=== PATIENT | male | born 1960 | race Caucasian/White ===

== ENCOUNTER 2023-03-21 09:40 | Outpatient (CLI) | payer OTHER, SELFPAY ==
--- NOTE | 2023-03-21 10:31 | ECG_ITS ---
Measurements Intervals [place] Rate: 92 P: 49 NC: 161 QRS: 40 QRSD: 109 T: 48 QT: 349 QTc: 432 Interpretive Statements SINUS RHYTHM EARLY PRECORDIAL R/S TRANSITION BASELINE ARTIFACT- I, II, III, AVF BORDERLINE ECG NO PREVIOUS ECG AVAILABLE FOR COMPARISON Electronically Signed On 03-21-2023 11:11:14 CDT by Jose Alfredo Santana D.O.
[2023-03-21 11:15] LABS: Urine Cotinine NEGATIVE
== END 2023-03-21 09:41 | disposition home or self-care (01) ==
PROVIDERS: PCP Internal Medicine; Visit Provider Orthopaedic Surgery
DX: I10 Essential (primary) hypertension (principal); Z79.899 Other long term (current) drug therapy; R94.31 Abnormal electrocardiogram [ECG] [EKG]
CPT/HCPCS: 80307; 93005

== ENCOUNTER 2023-03-28 13:22 | Outpatient (CLI) | payer OTHER, SELFPAY ==
--- NOTE | ~2023-03-28 | CT_ITS ---
CT OF right shoulder EXAMINATION: CT shoulder RT wo con DATE: 03/28/2023 13:46 INDICATION: Preoperative planning. Osteoarthritis of the right shoulder. TECHNIQUE: Computed tomography (CT) of the right shoulder was performed without intravenous contrast. Automated exposure control and iterative reconstruction technique were employed. The dose-length pro duct was 422.88 mGy-cm. COMPARISON: X-ray right shoulder 02/05/2023, images only. FINDINGS: Mild osseous demineralization. Mild AC joint osteoarthritis, with mild, 2 mm inferior osteophytosis. Minimal acromial tip enthesopathy. Subacromial narrowing to 4 mm. Superior migration of the humeral h ead. Moderate-severe glenohumeral osteoarthritis. 1.5 cm and 1.2 loose bodies in the anterior and sup erior aspect of the glenohumeral joint. Vertically oriented old fracture line at the posterior aspect of the glenoid. Adjacent 7 mm inferior loose body/fracture fragment. Visualized lung parenchyma is c lear. IMPRESSION: Severe glenohumeral osteoarthritis, with multiple loose bodies. Old posterior osseous glenoid fracture. Likely rotator cuff pathology. Mild AC joint osteoarthritis. Reviewed, dictated and finalized at location K.
== END 2023-03-28 13:23 | disposition home or self-care (01) ==
PROVIDERS: PCP Internal Medicine; Visit Provider Orthopaedic Surgery
DX: M19.011 Primary osteoarthritis, right shoulder (principal); M24.011 Loose body in right shoulder
CPT/HCPCS: 73200

== ENCOUNTER 2023-04-10 09:35 | Outpatient (CLI) | payer OTHER, SELFPAY ==
[2023-04-10 11:10] LABS: Basophils Percent Auto 0.1 % (0.2-1.2); Eosinophils Absolute Auto 0.3 K/mm3 (0-0.3); Eosinophils Percent Auto 4.2 % (0-4.4); Hematocrit 42.4 % (42.0-52.0); Hemoglobin 13.3 g/dL (14.0-18.0); Immature Granulocyte Absolute 0.01 K/mm3 (0.00-0.031); Immature Granulocyte Percent A 0.1 % (0-0.5); Lymphocytes Absolute Auto 2.01 K/mm3 (0.9-3.2); Lymphocytes Percent Auto 24.7 % (18.3-44.2); Mean Corpuscular HGB Conc 31.4 g/dl (32-36); Mean Corpuscular Hemoglobin 29.7 pg (26-34); Mean Corpuscular Volume 94.6 fl (80-100); Mean Platelet Volume 9.8 fl (7.4-10.4); Monocytes Absolute Auto 0.5 K/mm3 (0.1-0.6); Monocytes Percent Auto 6.4 % (2.6-8.5); Neutrophils Absolute Auto 5.2 K/mm3 (1.3-6.7); Neutrophils Percent Auto 64.5 % (45.5-73.1); Platelet Count Result 261 k/mm3 (150-375); Red Blood Count 4.48 M/mm3 (4.6-6.20); Red Cell Distribution Width 13.5 % (11.5-14.5); White Blood Count 8.1 K/mm3 (4.5-10.0)
== END 2023-04-10 09:36 | disposition home or self-care (01) ==
LOC: ANHSURGERY 09:39
PROVIDERS: PCP Internal Medicine; Visit Provider Orthopaedic Surgery
DX: Z01.811 Encounter for preprocedural respiratory examination (principal); M19.011 Primary osteoarthritis, right shoulder
CPT/HCPCS: 36415; 85025; 87081

== ENCOUNTER 2023-05-06 02:24 | Day surgery (SDC) | payer OTHER, SELFPAY ==
[2023-04-10 10:01] VITALS: BMI 34.4
[2023-04-10 10:07] VITALS: BP 155/99; PULSE 87; RESP 16; TEMP 36.6; O2SAT 96
--- NOTE | 2023-04-10 10:22 | PC.NURSE ---
Addendum entered by Rin Marquez RN 04/10/23 10:32: HOLD VITAMINS/SUPPLEMENTS 3 DAYS PRE-OP PER ANESTHESIA, LAST DOSE 05/02/23. Original Note: Report to the Outpatient Waiting Room, entrance under the green pavilion located off [facility], at time _6:00AM on date ___05/06/23____. Planned Procedure Time: __7:30AM . Time changes happen often and if your time is changed the preop area will call you the afternoon before. - You and your visitor will be asked to self-screen and do not enter if you have any COVID symptoms. - A mask is optional within the hospital at this time. Patients may have clear liquids (water, carbonated beverages, clear teas, apple juice) until 3 hours prior to surgery with a maximum of 20 ounces. - No food from midnight until time of surgery Take the following medications with a SIP of water the morning of surgery: ___NONE DO NOT STOP ANY OF YOUR OTHER PRESCRIPTION MEDICATIONS PRIOR TO SURGERY ?EXCEPT THE FOLLOWING Medications to discontinue per physician ___HOLD IBUPROFEN 7 DAYS PRE-OP- LAST DOSE 04/29/23. HOLD ALL VITAMINS/SUPPLEMENTS 7 DAYS PRE-OP-LAST DOSE 05/02/23 Please no make-up, nail niuean, hairspray, perfume, deodorant, or body powder the day of surgery. No jewelry (including any body piercings) or valuables the day of surgery, leave them at home. Please take a shower or bath the night before, or the morning of, surgery with an antibacterial soap. Wear comfortable, loose fitting clothing. Children are encouraged to wear pajamas. - Jewelry must be removed prior to entering the operating room. Rings and piercings that are not removed may be cut off. - The hospital will not accept responsibility for valuables. - Please leave all valuables, including medications, at home the day of surgery. If you are going home after surgery, a licensed line haul truck driver must drive you home. - NO public transportation without another adult if you receive anesthesia. - We recommend that an adult stay with you for 24 hours following discharge. - We also recommend that you do not drive, make important decision, drink alcoholic beverages, or take any drugs that were not prescribed by your health care provider for at least 24 hours after your discharge time. Follow any additional instructions given to you from your surgeon. If you or anyone in your household have experienced Covid symptoms in the past week, please notify your surgeon or the nurse liaison at the phone number below for possible testing. Telephone instructions given to _PATIENT & SISTER and asked if any additional questions and then verbalized understanding. Patient advised to call surgeon office or pre surgery nurse liaison [phone] if any additional questions.
--- NOTE | 2023-05-05 10:22 | WPDANESEPPF ---
Anes - Initial Pre Proc Eval Procedure: Operation Date: 05/06/23 07:30 Proposed Procedures p Right Reverse Total Shoulder Arthroplasty - Natanael Becker MD Date/Time: 05/05/23 10:22 Surgeon: Natanael Becker MD Pre Op Diagnosis: Prim O A Rt Shoulder Patient Data Age: 63 Gender: M Height: 1.68 m Weight: 96.7 kg Last Vital Signs Temp 36.6 C 04/10/23 10:07 Pulse 87 04/10/23 10:07 Resp 16 04/10/23 10:07 BP 155/99 H 04/10/23 10:07 Pulse Ox 96 04/10/23 10:07 O2 Del Method Room Air 04/10/23 10:07 Allergies Allergy/AdvReac Type Severity Reaction Status Date / Time No Known Allergies Allergy Verified 05/06/23 06:14 Home Medications Medication Instructions Recorded Confirmed Type rosuvastatin 5 mg tablet 5 mg PO DAILY 02/05/23 05/06/23 History ibuprofen 200 mg capsule 200 mg PO Q6H PRN Pain 04/10/23 05/06/23 History multivitamin 1 tablet PO DAILY 04/10/23 05/06/23 History losartan 50 mg tablet 50 mg PO DAILY 04/22/23 05/06/23 History Patient hx anesthesia problems: none Family hx anesthesia problems: none Results Review: All pre-operative results and documents have been reviewed as part of the pre-operative evaluation. [facility] Past Medical History Medical History Hyperlipidemia Hypertension Surgical History Surgical History History of bilateral hip replacements History of dental surgery Family History Family History Mother Bone disorder Father Cancer Social History Social History Smoking packs per day: 1 Smoking cigarettes per day: 20.0 Years smoked: 50 Smoking pack-years: 50.00 Smoking status: Former smoker Tobacco type: cigarettes Smoking end date: 02/09/23 Alcohol intake: never Substance use: never Substance use type: does not use Lack of Transportation: No Lack of Food: Never True Current Housing: I Have Housing Concerned About Future Housing: No Difficulty Paying Gas/Electric Bills: No Difficulty Paying for Meds: No Currently Unemployed: No Education: High School Diploma/GED Difficulty w/ Childcare or Family Care: No Living arrangements: alone Spiritual care concerns: No Anes - Eval Final PreProcedure Day of Procedure 05/05/23 10:22 Patient weight: obese Heart: regular rate and rhythm Lungs: clear to auscultation Airway: Mallampati scale class II Neurological: alert and oriented Last oral intake: >/= 8 hours ASA classification: III Emergent: no Anesthetic plan: proceed Anesthesia type and monitoring: general ETT and standard monitoring Results Review: All pre-operative results and documents have been reviewed as part of the pre-operative evaluation. Informed Consent: The patient's anesthetic plan and its attendant risks and benefits were discussed with the patient/family/POA. Questions were solicited and answers provided to the satisfaction of the patient/family/POA.
[2023-05-06] VITALS (12 sets, daily range): BP systolic 116–145; BP diastolic 70–106; PULSE 79–105; RESP 12–22; TEMP 36.2–36.8; O2SAT 90–100; BMI 34.7
--- NOTE | ~2023-05-06 | XR_ITS ---
Right Shoulder Technique: AP and scapular Y views were obtained. Clinical History: Postoperative Findings: Patient is status post reverse right shoulder arthroplasty. No hardware complication is tamela dent. No acute fracture seen. Soft tissue gas is compatible with postoperative change. Impression: Status post reverse right shoulder arthroplasty. Reviewed, dictated and finalized at location . Impression: Status post reverse right shoulder arthroplasty.
[2023-05-06] MEDS: LACTATED RINGERS 1,000 ML 30 ML IV CONT ×2 (07:05→11:05)
[2023-05-06] MEDS: TRANEXAMIC ACID 1,000MG/ISO100 1,000 MG/100 ML BAG 200 MG IVPB (07:12)
--- NOTE | 2023-05-06 07:12 | WPDHPUPDATE1 ---
History and Physical Update Update Date/Time: 05/06/23 07:12 History and Physical has been reviewed, including an updated exam of the patient. There are NO changes in the patient's condition. Risks, benefits, and alternatives have been discussed and questions answered. Patient agrees to proceed with procedure.
[2023-05-06] MEDS: ACETAMINOPHEN 500 MG TABLET 1000 MG PO ×3 (07:13→18:08)
[2023-05-06] MEDS: ceFAZolin 2 GM/D5W 50 ML 2 GM/50 ML BAG IVPB ×2 (07:29→14:38)
--- NOTE | 2023-05-06 07:31 | WPDANESPNB ---
Anes - Peripheral Nerve Block Date/Time: 05/06/23 07:31 I have discussed with the patient/family/POA the placement of a peripheral nerve block for post-operative pain management, including associated risks, benefits, complications, and side effects. Alternative methods of post-operative analgesia were detailed. Questions were solicited and answers provided to the satisfaction of the patient/family/POA. Time-Out: A pre-procedural Time-Out was completed immediately before starting the procedure and confirmed: Patient Identification, Site, Procedure, Patient Position and the Availability of Requisite Equipment. Clinical Indications: Acute post-operative pain management requested by the operative surgeon. Nerve Block Insertion Note Anes-nerve block: interscalene right Patient position: supine Skin prep: chlorhexidine Needle: 22 gauge, stimulating, insulated echogenic needle. Needle length: 50 mm Technique: ultrasound Injectate: bupivacaine 0.5% with epi 5 mcg/ml (30cc- no epi) Observations: tolerated well Complications: none Procedure start time:: 717 Procedure end time:: 721
--- NOTE | 2023-05-06 07:42 | WPDANESPNB ---
Anes - Peripheral Nerve Block Date/Time: 05/06/23 07:42 I have discussed with the patient/family/POA the placement of a peripheral nerve block for post-operative pain management, including associated risks, benefits, complications, and side effects. Alternative methods of post-operative analgesia were detailed. Questions were solicited and answers provided to the satisfaction of the patient/family/POA. Time-Out: A pre-procedural Time-Out was completed immediately before starting the procedure and confirmed: Patient Identification, Site, Procedure, Patient Position and the Availability of Requisite Equipment. Clinical Indications: Acute post-operative pain management requested by the operative surgeon. Nerve Block Insertion Note Anes-nerve block: interscalene right Patient position: supine Skin prep: chlorhexidine Needle: 22 gauge, stimulating, insulated echogenic needle. Needle length: 50 mm Technique: ultrasound Injectate: bupivacaine 0.5% with epi 5 mcg/ml (30cc- no epi) Observations: tolerated well Complications: none Procedure start time:: 717 Procedure end time:: 721
[2023-05-06] MEDS: VANCOMYCIN HCL 1,000 MG VIAL 1000 MG TOPICAL (08:55)
--- NOTE | 2023-05-06 11:11 | W.PM.PROC2 ---
Procedure Note - Detailed Date of Procedure 05/06/23 Pre-op Diagnosis Post traumatic djd Rt Shoulder Post-op Diagnosis Same Procedure Performed Reverse total shoulder arthroplasty, right. Surgeon Natanael Becker MD Anesthesia General and Regional (Interscalene block.) Indications Severe glenohumeral arthritis right shoulder. History of anterior shoulder dislocation many years ago. Findings Preoperative planning showed extensive osteophytes and posterior erosion of the glenoid. Bone quality was excellent. The 15 degree augmented base plate was utilized to minimize bone resection. Posterior capsule release was required. Glenoid osteophytes were excised. Description of Procedure The patient was given an interscalene block in the preoperative area. Preoperative antibiotics were given. The patient was transferred to the operating room and a general anesthetic was administered. The beach chair position was used at 45 degrees. All bony prominences were padded. The head was carefully stabilized on the [employer] head tennis coach. A sterile prep and drape was performed in the usual manner with ChloraPrep. A longitudinal incision was created at the anterior shoulder just lateral to the deltopectoral interval. Hydrogen peroxide was placed on the incision and then rinsed after one minute. Careful dissection was performed to expose the interval and protect the cephalic vein. The vein was retracted medially. The upper border of the pectoralis was released. Anterior circumflex vessel branches were suture ligated. The biceps was tenodesed. A subscapularis tenotomy was performed. The inferior capsule was released, exposing the humeral head. Osteophytes were removed. Care was taken to stay on bone to protect the axillary nerve. The anatomic head cut was taken with the oscillating saw. The guide pin was placed, central drilling performed, and the broach trial inserted. The neck anteversion and inclination were carefully assessed. The cut protector was placed, and attention was turned to the glenoid. Retractors were placed. Releases were carried out for exposure. The subscapularis was mobilized, the inferior capsule and long head of triceps released, and the superior and middle glenohumeral ligaments released as well. Labral tissue was resected as needed. The labrum was calcified posteriorly. The sizing template was used to assess the baseplate position low on the glenoid. A guide pin was placed. 15 degree augmented reaming angulation was chosen. Minimal reaming was used to accomplish a flat surface without violating the subchondral bone. Version was corrected according to preoperative templating. The boss was drilled, and the real component was impacted into position. Supplemental locking screws were placed centrally, superiorly, and inferiorly. The glenosphere was impacted into the taper. The proximal humerus was reamed for the inset component. The humeral components were trialed. The real humeral stem, tray, and insert were impacted into position. The shoulder was copiously irrigated periodically with pulsatile lavage. The shoulder was reduced and stability confirmed. 1 gram of Vancomycin powder was placed in the joint. The biceps tenodesis was incorporated with the pectoralis tendon repair. The deltopectoral space was reapproximated with number 1 Vicryl. The remaining tissue was closed with 0 Quill and 2-0 Quill running suture and steri-strips. A sterile occlusive dressing and shoulder immobilizer were placed. The patient was transferred to the recovery room. Implants Shoulder [employer]ations reverse TSA size 0 stem. +0 polyethylene insert. 15 degree augmented baseplate. 36+ 6 mm glenosphere. Estimated Blood Loss 200 Drains No Pathology None sent Complications No immediate complications Condition Stable Disposition PACU [facility] Billing Surgery - Charge Forward: Surgery Billing
--- NOTE | 2023-05-06 12:34 | ADMGEN ---
This patient, Toni Gomes, was admitted to Medical Room 342-01. Patient/family oriented to hospital policies and general routines including ID bracelet, bed and alarms, visiting hours, pain management, procedures, bathroom and other care routines, personal items, smoking policy, room service/diet, and visiting hours. Information on how to activate the Rapid Response Team has been discussed. Patient/Family are encouraged to report perceived risks to care and to ask questions if they do not understand what they are told or what they should do.
[2023-05-06] MEDS: oxyCODONE HCL (*CRX) 5 MG TAB IR PO (14:38)
[2023-05-06] MEDS: SENNA/DOCUSATE SODIUM TABLET 2 TAB PO (18:08)
[2023-05-06] MEDS: ASPIRIN 81 MG ENTERIC TABLET PO (18:08)
[2023-05-06] MEDS: FAMOTIDINE 20 MG TABLET PO (20:29)
[2023-05-07] MEDS: ceFAZolin 2 GM/D5W 50 ML 2 GM/50 ML BAG IVPB ×2 (00:27→06:21)
[2023-05-07] MEDS: ACETAMINOPHEN 500 MG TABLET 1000 MG PO ×2 (00:27→06:21)
[2023-05-07 01:40] VITALS: BP 137/86; PULSE 81; RESP 20; TEMP 36.6; O2SAT 95
[2023-05-07] MEDS: oxyCODONE HCL (*CRX) 5 MG TAB IR 10 MG PO (05:26)
[2023-05-07] MEDS: CYCLOBENZAPRINE HCL 10 MG TABLET PO (05:26)
[2023-05-07 05:40] VITALS: BP 133/73; PULSE 87; RESP 20; TEMP 37.3; O2SAT 97
[2023-05-07 05:42] LABS: Basophils Percent Auto 0.1 % (0.2-1.2); Eosinophils Percent Auto 0.2 % (0-4.4); Hematocrit 42.8 % (42.0-52.0); Hemoglobin 13.4 g/dL (14.0-18.0); Immature Granulocyte Absolute 0.05 K/mm3 (0.00-0.031); Immature Granulocyte Percent A 0.4 % (0-0.5); Lymphocytes Absolute Auto 1.76 K/mm3 (0.9-3.2); Lymphocytes Percent Auto 15.3 % (18.3-44.2); Mean Corpuscular HGB Conc 31.3 g/dl (32-36); Mean Corpuscular Volume 95.7 fl (80-100); Mean Platelet Volume 10.3 fl (7.4-10.4); Monocytes Percent Auto 8.7 % (2.6-8.5); Neutrophils Absolute Auto 8.7 K/mm3 (1.3-6.7); Neutrophils Percent Auto 75.3 % (45.5-73.1); Platelet Count Result 244 k/mm3 (150-375); Red Blood Count 4.47 M/mm3 (4.6-6.20); Red Cell Distribution Width 13.2 % (11.5-14.5); White Blood Count 11.5 K/mm3 (4.5-10.0)
[2023-05-07] MEDS: MULTIVITAMINS THERAPEUTIC TAB (*BKC) 1 TABLET PO (08:41)
[2023-05-07] MEDS: LOSARTAN POTASSIUM 50 MG TABLET PO (08:41)
[2023-05-07] MEDS: SENNA/DOCUSATE SODIUM TABLET 2 TAB PO (08:41)
[2023-05-07] MEDS: ROSUVASTATIN 5 MG TABLET PO (08:41)
[2023-05-07] MEDS: polyethylene glycoL 3350 17 GM POWD.PACK PO (08:42)
[2023-05-07] MEDS: FAMOTIDINE 20 MG TABLET PO (08:42)
[2023-05-07] MEDS: ASPIRIN 81 MG ENTERIC TABLET PO (08:42)
--- NOTE | 2023-05-07 10:19 | WPDANESPN ---
Anes - Prog Note Post-Op Date/Time: 05/07/23 10:19 Cardiovascular status: normal Respiratory status: normal Airway patency: baseline Mental status: baseline Post-Op hydration status: normal Vital Signs: Last Vital Signs Temp 37.3 C 05/07/23 05:40 Pulse 87 05/07/23 05:40 Resp 20 05/07/23 05:40 BP 133/73 05/07/23 05:40 Pulse Ox 97 05/07/23 05:40 O2 Del Method Room Air 05/06/23 21:03 O2 Flow Rate 6 05/06/23 11:15 Pain Score (VAS): 0 I/O: Intake & Output 05/06/23 05/07/23 05/07/23 23:59 07:59 15:59 Intake Total 790 300 120 Balance 790 300 120 Laboratory Tests 05/07/23 05:15 05/07/23 05:15 05/07/23 05:15 WBC 11.5 H RBC 4.47 L Hgb 13.4 L Hct 42.8 MCV 95.7 MCH 30.0 MCHC 31.3 L RDW 13.2 Plt Count 244 MPV 10.3 Immature Gran % (Auto) 0.4 Neut % (Auto) 75.3 H Lymph % (Auto) 15.3 L [place] % (Auto) 8.7 H Eos % (Auto) 0.2 Baso % (Auto) 0.1 L Lymph # (Auto) 1.76 [place] # (Auto) 1.0 H Eos # (Auto) 0.0 Baso # (Auto) 0.0 Abs Immat Gran (auto) 0.05 H Absolute Neuts (auto) 8.7 H Absolute Nucleated RBC 0.0 Nucleated RBC % 0.0 Sodium Cancelled Potassium Cancelled Chloride Cancelled Carbon Dioxide Cancelled Anion Gap Cancelled BUN Cancelled Creatinine Cancelled Estim Creat Clear Calc Cancelled Estimated GFR Cancelled Glucose Cancelled Calcium Cancelled Post-procedural complaints: none Patient Feedback: Patient satisfied with anesthetic care.
--- NOTE | 2023-05-07 10:38 | P.DS_ITS ---
DS: Admitting Diagnosis Discharge Date 05/07/23 Admitting Diagnosis DJD of right shoulder DS: Discharge Diagnosis Discharge Diagnosis (1) Status post reverse total arthroplasty of right shoulder: Code(s): Z96.611 - Presence of right artificial shoulder joint Status: Acute Assessment and Plan: Postop day 1: Right reverse total shoulder arthroplasty. Patient tolerated procedure well. No complications. Pain manageable with pain medication. No numbness or tingling. We had a lengthy discussion regarding postoperative wound care, limitations, expectations, and exercises. Patient shows good understanding. He has had initial physical therapy and is tolerating it well. DVT prophylaxis: 81 mg baby aspirin b.i.d. for 14 days. Pain medication: Percocet. Patient has followup appointment with Dr. Becker in 3 weeks. DS: Summary Hospital Course Hospital Course: Has had initial PT/OT and tolerating it well. No immediate complications. Status at Discharge Functional status at discharge: independent ambulation Overall status at discharge: patient is progressing back to baseline Time Spent with Patient Time attestation: Total time spent providing and/or coordinating discharge services: Exam Narrative: Overweight 63 y/o male. Resting comfortably in bed. Wearing sling. Dressing dry and intact with no drainage. Moderate swelling. Moderate ecchymosis. No erythema. No hematoma. Range of motion limited due to pain. Calf nontender. Neurologic status intact. No varicosities. Distal pulses palpable. DS: Data Data Completed and Pending Labs on day of discharge: Labs from last 24 hours 05/07/23 05:15 WBC 11.5 H RBC 4.47 L Hgb 13.4 L Hct 42.8 MCV 95.7 MCH 30.0 MCHC 31.3 L RDW 13.2 Plt Count 244 MPV 10.3 Immature Gran % (Auto) 0.4 Neut % (Auto) 75.3 H Lymph % (Auto) 15.3 L [place] % (Auto) 8.7 H Eos % (Auto) 0.2 Baso % (Auto) 0.1 L Lymph # (Auto) 1.76 [place] # (Auto) 1.0 H Eos # (Auto) 0.0 Baso # (Auto) 0.0 Abs Immat Gran (auto) 0.05 H Absolute Neuts (auto) 8.7 H Absolute Nucleated RBC 0.0 Nucleated RBC % 0.0 Sodium Cancelled Potassium Cancelled Chloride Cancelled Carbon Dioxide Cancelled Anion Gap Cancelled BUN Cancelled Creatinine Cancelled Estim Creat Clear Calc Cancelled Estimated GFR Cancelled Glucose Cancelled Calcium Cancelled Discharge Plan Discharge Patient Disposition: Home, Self-Care Discharge Instructions: See green instruction sheets Stand Alone Forms: General Discharge Instructions Follow-up/Referrals: Liyah Woo PA [Physician Hydrostatic Tester] - Discharge Medications: New aspirin 81 mg tablet,delayed release (DR/EC) 81 mg PO BID 14 Days Qty: 28 0RF oxycodone-acetaminophen 5-325 mg tablet 1 - 2 tablet PO Q4-6H MDD 6 PRN (Reason: pain) Qty: 30 0RF Continued rosuvastatin 5 mg tablet 5 mg PO DAILY losartan 50 mg tablet 50 mg PO DAILY multivitamin Tablet 1 tablet PO DAILY ibuprofen 200 mg Capsule 200 mg PO Q6H PRN (Reason: Pain)
== END 2023-05-07 10:55 | disposition home or self-care (01) ==
LOC: ANHSURGERY 11:07 → ANH3MED 11:58
PROVIDERS: Physician Assistant Surgical; PCP Internal Medicine; Visit Provider Orthopaedic Surgery
PROC: (CPT 23472; principal; 2023-05-06 07:30)
DX: M19.111 Post-traumatic osteoarthritis, right shoulder (principal); S43.004S Unspecified dislocation of right shoulder joint, sequela; X58.XXXS Exposure to other specified factors, sequela; G89.18 Other acute postprocedural pain; I10 Essential (primary) hypertension; E78.5 Hyperlipidemia, unspecified; Z87.891 Personal history of nicotine dependence; E66.9 Obesity, unspecified; Z68.34 Body mass index [BMI] 34.0-34.9, adult
CPT/HCPCS: 23472; 64415; 36415; 73030; 80048; 85025; 86850; 86900; 86901; 87081; 97110; 97161; 97165; 97535; A4565; A9270; C1776; J0171; J0690; J1100; J1170; J1885; J2250; J2270; J2371; J2405; J2704; J2795; J3010; J3370; J7120